=== PATIENT | female | born 1980 | race Caucasian/White ===

== ENCOUNTER 2021-07-09 20:17 | Emergency (ER) | payer OTHER, SELFPAY ==
--- NOTE | 2021-07-09 20:15 | ECG_ITS ---
APPROVED REPORT Exam: Resting ECG HR:98 bpm ECG Measurements Heart Rate 98 AXES [place] 156 P 20 QRSd 98 QRS 25 QT 369 T 8 QTc 424 Conclusion SINUS RHYTHM NONSPECIFIC ST & T-WAVE ABNORMALITY BORDERLINE ECG UNCONFIRMED REPORT Electronically signed by : Luiz Blum MD 07/11/2021 17:51:37
[2021-07-09 20:18] VITALS: BP 191/111; PULSE 95; RESP 18; TEMP 36.8; O2SAT 100; BMI 35.7
[2021-07-09 20:19] VITALS: BMI 34.9
--- NOTE | 2021-07-09 20:20 | XR_ITS ---
PROCEDURE INFORMATION: Exam: XR Chest Exam date and time: 07/09/2021 8:20 PM Age: 40 years old Clinical indication: Sternal or substernal pain; Patient HX: Chest pain, half a pack a day cigarette smoker. Shielded. TECHNIQUE: Imaging protocol: XR of the chest. Views: 2 views. Total images: 2 COMPARISON: No relevant prior studies available. FINDINGS: Lungs: Bronchial wall thickening suggesting bronchitis, age indeterminate. Pulmonary vasculature grossly normal. No gross pulmonary infiltrates. 14 mm nodular density projecting in the lateral right base on the frontal view, not well seen on the lateral view. This might represent a nipple shadow but is nonspecific. Nonemergent chest CT without contrast recommended. Pleural spaces: No pleural effusion. No pneumothorax. Heart/Mediastinum: Heart size normal. No tracheal/mediastinal shift. Bones/joints: No acute osseous abnormalities are identified. IMPRESSION: 1. Bronchial wall thickening suggesting bronchitis, age indeterminate. No gross infiltrates. 2. 14 mm nodular density projects in the peripheral right base on the frontal view. Nonemergent chest CT without contrast recommended.
[2021-07-09 20:33] VITALS: BP 155/100; PULSE 98; RESP 19
[2021-07-09 20:38] LABS: Basophils # 0.1 K/mm3 (0-0.2); Eosinophils # 0.1 K/mm3 (0.0-0.4); Eosinophils % 0.6 % (0.1-12.0); Hematocrit 36.5 % (37.0-47.0); Hemoglobin 10.9 g/dL (12.2-16.2); Lymphocytes # 2.1 K/mm3 (0.7-4.5); Lymphocytes % 18.3 % (10-50); Mean Corpuscular HGB Conc 29.8 g/dL (31.8-35.4); Mean Corpuscular Hemoglobin 26.6 pg (27.0-31.2); Mean Corpuscular Volume 89.5 fl (81-99); Monocytes # 0.5 K/mm3 (0.1-1.0); Monocytes % 4.4 % (1.7-9.3); Neutrophils # 8.6 K/mm3 (1.8-7.8); Neutrophils % 75.8 % (37.0-80.0); Platelet Count 281 K/mm3 (142-424); Red Blood Count 4.07 M/mm3 (4.20-5.40); Red Cell Distribution Width 19.1 % (11.5-17.5); White Blood Count 11.3 K/mm3 (4.8-10.8)
--- NOTE | 2021-07-09 20:46 | [facility].EDCP ---
ED Disposition Clinical Impression: Atypical chest pain Pericarditis Qualifiers: Pericarditis type: unspecified type Chronicity: acute Qualified Code(s): I30.9 - Acute pericarditis, unspecified Disposition: Home, Self-Care Condition on Discharge: Good Instructions: DI for Atypical Chest Pain Additional Instructions: see card in am Prescriptions: predniSONE [Prednisone 20mg Tab] 20 mg PO BID #10 tab Transmission Status: Pending to [facility]/pharmacy #[id number] Referrals: Provider,Referral, [Primary Care Provider] - - Critical Care Critical Care Time: No Attestation: On , the high probability of a clinically significant, sudden or life threatening deterioration of the following system(s) required my full and direct attention, intervention and personal management. The time I documented below is in addition to time spent performing reported procedures but includes the following listed in this critical care notation. Medical Decision Making - Medical Records Medical records reviewed: Yes: I reviewed the patient's medical records. - [place] Inquiry Pt receiving controlled substance: No Vital Signs: 07/09/21 20:18 07/09/21 20:33 07/09/21 21:02 Temperature 98.2 F Temperature Source Oral Pulse Rate 98 H Pulse Rate [Left] 95 H Respiratory Rate 18 19 18 Blood Pressure 155/100 H 171/104 H Blood Pressure [Right Arm] 191/111 H Blood Pressure Mean 118 120 Blood Pressure Mean [Right Arm] 137 02 Sat by Pulse Oximetry 100 Oxygen Delivery Method Room Air 07/09/21 21:30 07/09/21 22:00 07/09/21 23:40 Temperature 98.4 F Temperature Source Oral Pulse Rate 90 102 H 92 H Pulse Rate [Left] Respiratory Rate 20 16 Blood Pressure 170/109 H 155/109 H 149/94 H Blood Pressure [Right Arm] Blood Pressure Mean 129 124 Blood Pressure Mean [Right Arm] 02 Sat by Pulse Oximetry 99 Oxygen Delivery Method Room Air - Lab Data Lab results reviewed: Yes: I reviewed the patient's lab results. Lab Results 07/09/21 20:24: WBC 11.3 H, RBC 4.07 L, Hgb 10.9 L, Hct 36.5 L, MCV 89.5, MCH 26.6 L, MCHC 29.8 L, RDW 19.1 H, Plt Count 281, MPV 9.0, Neut % (Auto) 75.8, Lymph % (Auto) 18.3, [place] % (Auto) 4.4, Eos % (Auto) 0.6, Baso % (Auto) 1.0, Neut # (Auto) 8.6 H, Lymph # (Auto) 2.1, [place] # (Auto) 0.5, Eos # (Auto) 0.1, Baso # (Auto) 0.1 07/09/21 20:24: Sodium 136, Potassium 2.9 L*, Chloride 102, Carbon Dioxide 25, Anion Gap 11.9, BUN 7, Creatinine 0.60, Estimated Creat Clear 207, Estimated GFR 111, Est GFR ( Amer) 135, Glucose 101 H, Calcium 8.8, Troponin I < 0.01 07/09/21 20:24: Serum HCG, Qual Negative 07/09/21 20:24: ESR 20 07/09/21 20:24: C-Reactive Protein 6.0 H, Procalcitonin 0.050 07/09/21 20:55: Urine Color Yellow, Urine Appearance Clear, Urine pH 6.5, Ur Specific [place] 1.025, Urine Protein Negative, Urine Glucose (UA) Negative, Urine Ketones Negative, Urine Blood 1+, Urine Nitrate Negative, Urine Bilirubin Negative, Urine Urobilinogen 0.2, Ur Leukocyte Esterase Negative, Urine WBC 3-5, Ur Squamous Epith Cells Tntc, Amorphous Sediment 1+, Urine Bacteria 1+, Urine Mucus 1+ 07/09/21 20:58: Urine Opiates Screen Negative, Urine Methadone Screen Negative, Ur Barbituates Screen Negative, Ur Phencyclidine Scrn Negative, Ur Amphetamines Screen Negative, U Benzodiazepines Scrn Negative, Urine Cocaine Screen Negative, U Marijuana (THC) Screen Negative Result diagrams: 07/09/21 20:24 07/09/21 20:24 Orders (Tests/Meds): ED MEDICATIONS Generic Name Dose Route Start Last Admin Trade Name Freq PRN Reason Stop Dose Admin Sodium Chloride 1,000 mls @ 999 mls/hr 07/09/21 20:45 07/09/21 20:37 Sod Chlor 0.9% 1000ml Bag IV 07/09/21 21:45 999 mls/hr .Q1H1M NORBERT Administration Sodium Chloride 1,000 mls @ 999 mls/hr 07/09/21 20:45 07/09/21 20:47 Sod Chlor 0.9% 1000ml Bag IV 07/09/21 21:45 Not Given .Q1H1M NORBERT Nitroglycerin 0.4 mg 07/09/21 20:21 07/09/21 20:26 Nitroglycerin 0.4mg
[2021-07-09 20:52] LABS: Chloride 102 mmol/L (98-107); Sodium 136 mmol/L (136-145)
--- NOTE | 2021-07-09 20:53 | ECG_ITS ---
APPROVED REPORT Exam: Resting ECG HR:91 bpm ECG Measurements Heart Rate 91 AXES [place] 160 P 26 QRSd 98 QRS 34 QT 368 T 38 QTc 417 Conclusion SINUS RHYTHM NONSPECIFIC T-WAVE ABNORMALITY BORDERLINE ECG UNCONFIRMED REPORT Electronically signed by : Luiz Blum MD 07/11/2021 17:51:26
[2021-07-09 20:55] LABS: Anion Gap 11.9 mEq/L (5-15); Blood Urea Nitrogen 7 mg/dl (7-17); Calcium 8.8 mg/dl (8.4-10.2); Carbon Dioxide 25 mmol/L (22.0-30.0); Creatinine Clearance Estimated 207 mL/min (50-200); Estimated Glomerular Filt Rate 111 ml/min (>60); GFR (African American) 135 ML/MIN (>60); Glucose 101 mg/dl (74-100)
[2021-07-09 20:57] LABS: Potassium 2.9 mmoL/L (3.5-5.1)
--- NOTE | 2021-07-09 20:58 | PC.NURSE ---
critical Potassium 2.9 called from lab notified
[2021-07-09 20:59] LABS: HCG Qualitative, Serum Negative (Negative)
[2021-07-09 21:02] VITALS: BP 171/104; RESP 18
[2021-07-09 21:03] LABS: Microscopic, Urine URINE MICROSCOPIC (MICROSCOPIC)
[2021-07-09 21:06] LABS: Appearance,Urine CLEAR (Clear); Bilirubin,Urine Negative (Negative); Blood, Urine 1+ (Negative); Color,Urine YELLOW (Yellow); Glucose,Urine (UA) Negative (Negative); Ketones,Urine Negative (Negative); Leukocyte Esterase,Urine Negative (Negative); Nitrate,Urine Negative (Negative); PH,Urine 6.5 (5.0-8.5); Protein,Urine Negative (Negative); Specific Gravity, Urine 1.025 (1.005-1.030); Urobilinogen,Urine 0.2 EU/dl (0.2)
[2021-07-09 21:09] LABS: Troponin I < 0.01 ng/ml (0.00-0.034)
--- NOTE | 2021-07-09 21:16 | CT_ITS ---
PROCEDURE INFORMATION: Exam: CTA Chest With Contrast Exam date and time: 07/09/2021 9:16 PM Age: 40 years old Clinical indication: Shortness of breath; Additional info: SOA TECHNIQUE: Imaging protocol: Computed tomographic angiography of the chest with contrast. 3D rendering (Not supervised by radiologist): MIP and/or 3D reconstructed images were created by the technologist. Total images: 303 Radiation optimization: All CT scans at this facility use at least one of these dose optimization techniques: automated exposure control; mA and/or kV adjustment per patient size (includes targeted exams where dose is matched to clinical indication); or iterative reconstruction. Contrast material: ISOVUE; Contrast volume: 70 ml; Contrast route: INTRAVENOUS (IV); COMPARISON: CR XR CHEST 2V 07/09/2021 8:19 PM FINDINGS: Pulmonary arteries: No pulmonary emboli were identified. Assessment of the small peripheral subsegmental branches in the lung bases was limited due to gross respiratory motion. Aorta: The aorta enhances appropriately without evidence of dissection or aneurysm. No mediastinal hematoma. Thyroid: The visualized thyroid gland demonstrates no gross abnormality. Lungs: No acute tracheobronchial abnormalities. No gross pulmonary infiltrates or edema pattern. Mild atelectasis in the lung bases. 4 mm juxtapleural nodule in the posterolateral left lower lobe on series 5, image 72. For patients at low risk (minimal or absent history of smoking and of other known risk factors), no routine follow-up is indicated. For patients at high risk (history of smoking or of other known risk factors), consider optional CT at 12 months. (Julia et al., Fleischner Society, 2017). The possible nodule questioned on the recent chest x-ray in the right basilar region is not confirmed on CT and is felt to have represented a nipple shadow. Pleural spaces: No pleural effusion. No pneumothorax. Heart: Heart size normal. Mild pericardial thickening and pericardial fatty stranding, most notable near the apex, with small volume pericardial fluid in the superior and inferior recesses. This is concerning for pericarditis. Lymph nodes: No supraclavicular or axillary adenopathy. No mediastinal or hilar adenopathy. Diaphragm: Question small hiatal hernia. Liver: Mild generalized fatty infiltration of the liver with areas of focal fatty infiltration near the gallbladder fossa. Bones/joints: No acute osseous abnormalities are identified. Soft tissues: The soft tissues of the chest wall demonstrate no acute abnormality. IMPRESSION: 1. No evidence of pulmonary embolism. Assessment of the small peripheral branches in the lung bases was limited by respiratory motion. 2. There is mild pericardial thickening and adjacent fatty stranding concerning for pericarditis, with small volume pericardial fluid. 3. There is a 4 mm pulmonary nodule in the posterolateral left lower lobe. Please see follow-up recommendations above. 4. The possible pulmonary nodule in the lateral right lung base questioned on the recent chest x-ray is not confirmed on CT, and is felt to have represented a nipple shadow at this point. 5. Fatty liver.
[2021-07-09 21:26] LABS: Amorphous Sediment,Urine 1+ /lpf; Bacteria,Urine 1+ /lpf; Mucus,Urine 1+ /lpf; Squamous Epithelial Cell,Urine TNTC #/hpf (0-5)
--- NOTE | 2021-07-09 21:29 | PC.NURSE ---
NO CHANGES IN ASSMT. PATIENTS CHILDREN REMAIN AT BEDSIDE. IV SITE WNL. WCM.
[2021-07-09 21:30] VITALS: BP 170/109; PULSE 90
[2021-07-09 22:00] VITALS: BP 155/109; PULSE 102; RESP 20; O2SAT 99
--- NOTE | 2021-07-09 22:06 | PC.NURSE ---
PT UPDATED WITH POC. WCM.
[2021-07-09 22:19] LABS: Barbiturates Screen,Urine Negative ng/ml (<200)
[2021-07-09 22:20] LABS: Amphetamine/Metha Screen,Urine Negative ng/ml (<1000); Benzodiazepines Screen,Urine Negative ng/ml (<200)
[2021-07-09 22:21] LABS: Cannabinoid Screen,Urine Negative ng/ml (<50)
[2021-07-09 22:22] LABS: Cocaine Screen,Urine Negative ng/ml (<300); Methadone Screen,Urine Negative ng/ml (<300)
[2021-07-09 22:23] LABS: Opiate Screen,Urine Negative ng/ml (<300)
[2021-07-09 22:24] LABS: Phencyclidine Screen,Urine Negative ng/ml (<25)
--- NOTE | 2021-07-09 22:39 | PC.NURSE ---
pt and family updated. awaiting results of ct and blood work
[2021-07-09 23:32] LABS: Erythrocyte Sedimentation Rate 20 mm/hr (0-20)
--- NOTE | 2021-07-09 23:33 | PC.NURSE ---
PT laying in bed, no needs at this time
[2021-07-09 23:40] VITALS: BP 149/94; PULSE 92; RESP 16; TEMP 36.9; O2SAT 97
[2021-07-09 23:50] LABS: Troponin I < 0.01 ng/ml (0.00-0.034)
== END 2021-07-10 00:07 | disposition home or self-care (01) ==
PROVIDERS: Emergency Provider Emergency Medicine
DX: I31.9 Disease of pericardium, unspecified (principal); M25.512 Pain in left shoulder; R94.31 Abnormal electrocardiogram [ECG] [EKG]; R00.0 Tachycardia, unspecified; R05.9 Cough, unspecified; F17.200 Nicotine dependence, unspecified, uncomplicated; Z79.51 Long term (current) use of inhaled steroids; Z79.52 Long term (current) use of systemic steroids; Z79.82 Long term (current) use of aspirin; Z79.899 Other long term (current) drug therapy; Z82.49 Family history of ischemic heart disease and other diseases of the circulatory system; Z81.2 Family history of tobacco abuse and dependence
CPT/HCPCS: 71046; 71275; 80048; 80305; 81001; 84145; 84484; 84703; 85025; 85651; 86140; 93005; 96361; 96365; 96366; 96374; 96375; 99285; Q9967

== ENCOUNTER → 2021-07-10 10:39 | Outpatient (CLI) | payer OTHER, SELFPAY ==
[2021-07-10 12:12] LABS: Chloride 106 mmol/L (98-107); Potassium 4.3 mmoL/L (3.5-5.1); Sodium 135 mmol/L (136-145)
[2021-07-10 12:15] LABS: Anion Gap 10.3 mEq/L (5-15); Blood Urea Nitrogen 4 mg/dl (7-17); Calcium 8.9 mg/dl (8.4-10.2); Carbon Dioxide 23 mmol/L (22.0-30.0); Estimated Glomerular Filt Rate 137 ml/min (>60); GFR (African American) 166 ML/MIN (>60); Glucose 151 mg/dl (74-100)
[2021-07-10 12:24] LABS: NT Pro Brain Natriuretic Pep. 375 pg/mL (0-125)
== END ==
PROVIDERS: Visit Provider Nurse Practitioner Family
DX: R07.89 Other chest pain (principal); I30.9 Acute pericarditis, unspecified; R00.0 Tachycardia, unspecified; J40 Bronchitis, not specified as acute or chronic; R05.9 Cough, unspecified; R94.31 Abnormal electrocardiogram [ECG] [EKG]; F17.200 Nicotine dependence, unspecified, uncomplicated
CPT/HCPCS: 36415; 80048; 83880; 93306

== ENCOUNTER → 2021-07-12 14:44 | Outpatient (CLI) | payer OTHER, SELFPAY ==
[2021-07-12 15:25] LABS: Hemoglobin A1C 5.3 % (4.0-6.0)
== END ==
PROVIDERS: Visit Provider Internal Medicine
DX: R73.03 Prediabetes (principal)
CPT/HCPCS: 36415; 83036